=== PATIENT | male | born 1940 | race Caucasian/White ===

== ENCOUNTER → 2021-11-29 13:25 | Outpatient (BNVA) | payer MEDICARE, OTHER, SELFPAY | PROVIDERS: PCP Student in an Organized Health Care Education/Training Program; Visit Provider Internal Medicine Cardiovascular Disease | DX: I48.91 Unspecified atrial fibrillation (principal); R60.9 Edema, unspecified; Z87.891 Personal history of nicotine dependence; I50.9 Heart failure, unspecified; Z95.818 Presence of other cardiac implants and grafts; E66.9 Obesity, unspecified; Z68.41 Body mass index [BMI] 40.0-44.9, adult | CPT/HCPCS: 93005; 99204 ==

== ENCOUNTER 2021-12-05 09:29 | Outpatient (CLI) | payer MEDICARE, OTHER, SELFPAY ==
[2021-12-05 10:02] LABS: Basophils % 0.5 %; Eosinophils # 0.2 10^3/uL (0.0-0.8); Eosinophils % 3.3 %; Hematocrit 42.9 % (42.0-52.0); Hemoglobin 14.5 g/dL (11.7-16.6); Lymphocytes # 1.1 10^3/uL (0.8-4.8); Lymphocytes % 20.9 %; Mean Corpuscular HGB Conc 33.8 g/dL (30.0-36.0); Mean Corpuscular Hemoglobin 34.1 pg (28.0-34.0); Mean Corpuscular Volume 100.9 fl (80-94); Mean Platelet Volume 10.1 fL (7.4-10.4); Monocytes # 0.5 10^3/uL (0.2-0.9); Monocytes % 9.3 %; Neutrophils # 3.59 10^3/uL (1.8-7.7); Neutrophils % 65.8 %; Nucleated Red Blood Cells % 0 %; Platelet Count 125 10^3/cmm (130-400); Red Blood Count 4.25 10^6/uL (4.1-5.3); Red Cell Distribution Width 12.7 % (12.1-15.1); White Blood Count 5.5 10^3/uL (4.0-10.0)
[2021-12-05 10:32] LABS: Alanine Aminotransferase 17 U/L (0-41); Alkaline Phosphatase 71 U/L (40-130); Anion Gap 10.9 (5-19); Aspartate Amino Transferase 22 U/L (0-40); Blood Urea Nitrogen 19 mg/dL (8-23); Calcium 8.9 mg/dL (8.5-10.5); Carbon Dioxide 31 mmol/L (22-29); Chloride 105 mmol/L (98-107); Chol HDL Ratio 2.66 mg/dL (1.0-5.00); Cholesterol 117 mg/dL (0-200); Globulin 2.5 g/dL (1.3-4.6); Glucose 93 mg/dL (65-115); HDL Cholesterol 44 mg/dL (60-100); LDL Cholesterol Calculated 61 mg/dL (50-129); LDL HDL Ratio 1.39 RATIO (0.00-3.22); NT Pro B Type Natriuretic Pept 623 pg/mL (0-450); Osmolality Calculated 296 mOsm/kg (285-295); Potassium 4.9 mmol/L (3.5-5.1); Sodium 142 mmol/L (136-145); Thyroid Stimulating Hormone 3.42 uIU/mL (0.27-4.20); Total Bilirubin 0.8 mg/dL (0.15-1.2); Total Protein 6.5 g/dL (6.6-8.7); Triglycerides 61 mg/dL (0-150)
== END 2021-12-05 09:30 | disposition home or self-care (01) ==
LOC: LAB 09:32
PROVIDERS: PCP Student in an Organized Health Care Education/Training Program; Visit Provider Internal Medicine Cardiovascular Disease
DX: I50.9 Heart failure, unspecified (principal); N18.9 Chronic kidney disease, unspecified; Z79.01 Long term (current) use of anticoagulants; R53.1 Weakness; E78.5 Hyperlipidemia, unspecified; R06.02 Shortness of breath
CPT/HCPCS: 36415; 80053; 80061; 83880; 84443; 85025

== ENCOUNTER → 2022-03-06 14:34 | Outpatient (BNVA) | payer MEDICARE, OTHER, SELFPAY | PROVIDERS: Visit Provider Nurse Practitioner Family | DX: I48.20 Chronic atrial fibrillation, unspecified (principal); Z95.818 Presence of other cardiac implants and grafts; I50.42 Chronic combined systolic (congestive) and diastolic (congestive) heart failure; I49.3 Ventricular premature depolarization | CPT/HCPCS: 80053; 83880; 85025; 93005; 99214 ==

== ENCOUNTER 2022-03-29 14:33 | Outpatient (CLI) | payer MEDICARE, OTHER, SELFPAY ==
--- NOTE | 2022-03-29 15:00 | USCV_ITS ---
Luis Antonio Santo Age: 81 Gender: M : 1940 Exam Date: 03/29/2022 15:12 Ordering Phys: Abbie Long Technologist: Exam Location: [facility] [place] Indication: dizzy BP: 130 / 74 HR: 41 Rhythm: Sinus Technical Quality: Adequate MEASUREMENTS (Male / Female) Normal Values 2D ECHO LV Diastolic Diameter PLAX 4.4 cm 4.2 - 5.9 / 3.9 - 5.3 cm LV Systolic Diameter PLAX 2.4 cm IVS Diastolic Thickness 1.5 cm 0.6 - 1.0 / 0.6 - 0.9 cm IVS Systolic Thickness 1.3 cm LVPW Diastolic Thickness 1.4 cm 0.6 - 1.0 / 0.6 - 0.9 cm LVPW Systolic Thickness 1.5 cm LVOT Diameter 2.0 cm LV Ejection Fraction 2D Teich 76.6 % LV Ejection Fraction MOD 2C 73.2 % LV Ejection Fraction 2C AL 73.6 % LA Diameter 4.4 cm Aorta at Sinotubular Diameter 3.1 cm M-MODE Aortic Annulus Diameter 3.3 cm LA Ao Ratio MM 1.4 MV E Point Septal Separation 1.2 cm DOPPLER AV Peak Velocity 126.0 cm/s LVOT Peak Velocity 64.0 cm/s AV Area Cont Eq vti 1.4 cm squared AV Area Cont Eq pk 1.6 cm squared MV Area PHT 5.0 cm squared Mitral E to A Ratio 2.3 MV E' Velocity 45.5 cm/s Mitral E to MV E' Ratio 4.8 Mitral E to LV E' Lateral Ratio 4.8 Mitral E to LV E' Septal Ratio 4.8 TR Peak Velocity 248.3 cm/s TR Peak Gradient 24.7 mmHg TV Peak E Velocity 108.0 cm/s Right Atrial Pressure 3.0 mmHg Pulmonary Artery Systolic Pressu 27.7 mmHg RV Acceleration Time 0.1 s FINDINGS Left Ventricle Normal left ventricular size and systolic function, EF 70 %. No regional wall motion abnormalities. Right Ventricle Mildly dilated right ventricle with a normal ejection fraction. Horizontal density near the RV apex-moderator band Right Atrium Moderately increased right atrial size. Left Atrium Appears to be of normal Mitral Valve No gross abnormalities noted Aortic Valve No gross abnormalities noted Tricuspid Valve Mild tricuspid valve regurgitation. Estimated pulmonary artery peak systolic pressure of 38 mmHg Pulmonic Valve No gross abnormalities noted Pericardium No pericardial effusion. Aorta Normal aortic annulus size. IVC Inferior vena cava not visualized. CONCLUSIONS Normal left ventricular size and systolic function, EF 70 %. No regional wall motion abnormalities. Mildly dilated right ventricle with a normal ejection fraction. Possible moderator band in the right ventricle. Moderately dilated right atrium Mild tricuspid valve regurgitation. Estimated pulmonary artery peak systolic pressure of 38 mmHg. There is no pericardial effusion. No similar previous studies are available for comparison Dr Abbey Madden MD FACC (Electronically Signed) Final Date: 31 March 2022 18:15 S
== END 2022-03-29 14:34 | disposition home or self-care (01) ==
PROVIDERS: PCP Internal Medicine Cardiovascular Disease; Visit Provider Nurse Practitioner Family
DX: R42 Dizziness and giddiness (principal); I48.91 Unspecified atrial fibrillation; I50.42 Chronic combined systolic (congestive) and diastolic (congestive) heart failure; I07.1 Rheumatic tricuspid insufficiency
CPT/HCPCS: 93306

== ENCOUNTER 2022-04-18 11:13 | Outpatient (CLI) | payer MEDICARE, OTHER, SELFPAY ==
[2022-04-18 12:27] LABS: Anion Gap 10.8 (5-19); Blood Urea Nitrogen 28 mg/dL (8-23); Calcium 8.7 mg/dL (8.5-10.5); Carbon Dioxide 29 mmol/L (22-29); Chloride 101 mmol/L (98-107); Glucose 96 mg/dL (65-115); NT Pro B Type Natriuretic Pept 453 pg/mL (0-450); Osmolality Calculated 287 mOsm/kg (285-295); Potassium 4.8 mmol/L (3.5-5.1); Sodium 136 mmol/L (136-145)
== END 2022-04-18 11:14 | disposition home or self-care (01) ==
PROVIDERS: PCP Internal Medicine Cardiovascular Disease; Visit Provider Nurse Practitioner Family
DX: I48.91 Unspecified atrial fibrillation (principal); I50.42 Chronic combined systolic (congestive) and diastolic (congestive) heart failure
CPT/HCPCS: 36415; 80048; 83880

== ENCOUNTER → 2022-12-12 13:00 | Outpatient (BNVA) | payer MEDICARE, OTHER, SELFPAY | PROVIDERS: PCP Family Medicine; Visit Provider Nurse Practitioner Family | DX: I48.91 Unspecified atrial fibrillation (principal); R94.31 Abnormal electrocardiogram [ECG] [EKG] | CPT/HCPCS: 93005; 99213 ==

== ENCOUNTER → 2023-06-19 12:27 | Outpatient (BNVA) | payer MEDICARE, SELFPAY | PROVIDERS: PCP Family Medicine; Visit Provider Internal Medicine Cardiovascular Disease | DX: R06.02 Shortness of breath (principal); I48.91 Unspecified atrial fibrillation | CPT/HCPCS: 36415; 80048; 83880; 99214 ==

== ENCOUNTER → 2024-08-17 11:18 | Outpatient (BNVA) | payer MEDICARE, SELFPAY | PROVIDERS: PCP Family Medicine; Visit Provider Internal Medicine Cardiovascular Disease | DX: I50.42 Chronic combined systolic (congestive) and diastolic (congestive) heart failure (principal); I48.21 Permanent atrial fibrillation; Z79.01 Long term (current) use of anticoagulants; Z86.718 Personal history of other venous thrombosis and embolism; Z87.891 Personal history of nicotine dependence; R07.9 Chest pain, unspecified; R06.02 Shortness of breath; R55 Syncope and collapse | CPT/HCPCS: 93005; 99214 ==

== ENCOUNTER 2024-08-20 07:29 | Outpatient (CLI) | payer MEDICARE, SELFPAY ==
[2024-08-20 08:41] LABS: Anion Gap 12.5 (5-19); Blood Urea Nitrogen 27 mg/dL (8-23); Calcium 8.8 mg/dL (8.5-10.5); Carbon Dioxide 28 mmol/L (22-29); Chloride 104 mmol/L (98-107); Glucose 91 mg/dL (65-115); NT Pro B Type Natriuretic Pept 1370 pg/mL (0-450); Osmolality Calculated 295 mOsm/kg (285-295); Potassium 4.5 mmol/L (3.5-5.1); Sodium 140 mmol/L (136-145)
== END 2024-08-20 07:30 | disposition home or self-care (01) ==
LOC: LAB 07:30
PROVIDERS: PCP Nurse Practitioner Family; Visit Provider Internal Medicine Cardiovascular Disease
DX: R06.02 Shortness of breath (principal)
CPT/HCPCS: 36415; 80048; 83880

== ENCOUNTER 2024-10-26 07:49 | Outpatient (CLI) | payer MEDICARE, SELFPAY ==
--- NOTE | 2024-10-26 | ECG_ITS ---
[employer] Test Date: 2024-10-26 Pat Name: Luis Antonio Santo Department: Room: Gender: Male Contact Center Analyst: : 1940 Requested By: Abbey Madden Order Number: [id number] Reading MD: CHEMA PRYOR Interpretive Statements Lung unchanged pre/post procedure; ; Intraprocedure shortess of breath; ; Symptoms resoled by discharge NOTE: Please note that this is the electrocardiogram portion of the Lexiscan/Sestamibi stress test. The perfusion scan will be documented separately. DATA: Baseline heart rate was 75 beats per minute. Baseline blood pressure was 140/90 millimeters of mercury. Target heart rate was 137 maximum heart rate achieved was 86. which was 62% of the predicted target heart rate. Maximum blood pressure was 140/91 millimeters of mercury. The reason for ending the test was [completion of the protocol]. The patient did not experience any symptoms. ELECTROCARDIOGRAM: BASELINE: Atrial fibrillation. Normal axis. Otherwise, no ST-T changes suggestive of ischemia noted. Frequent PVCs were noted EXERCISE: After Lexiscan injection, no ST-T changes suggestive of ischemic noted. Frequent PVCs noted which increased after Lexiscan injection CONCLUSION: Please note due to baseline abnormality of the EKG specificity and sensitivity of the EKG portion of LexiScan MIBI stress test will be low 1. [EKG not suggestive of ischemia] 2. [Lexiscan injection unremarkable]. 3. Perfusion scan will be documented separately. Electronically Signed On 11-22-2024 21:09:59 CDT by CHEMA PRYOR [email or web address]
[2024-10-26 08:01] VITALS: BMI 35.1
--- NOTE | 2024-10-26 08:02 | NMCV_ITS ---
NM rai perf SPECT r/s* [id number] Luis Antonio Santo Age: 84 Gender: M : 1940 Exam Date: 10/26/2024 08:49 Ordering Phys: Abbey Madden MD ([email or web address]) Technologist: FRANCISCO J Villagran Exam Location: [facility] Indications: cp STRESS TEST [facility] IMAGE PROTOCOL Rest/Stress 1 Lexiscan Day Radiopharmaceutical Dose (mCi) Administration Site Administered by Rest: Tc-99m 10.6 IV Cara Bobo, [employer] Sestamibi Stress:Tc-99m 32.6 IV Cara Bobo, [employer] Sestamibi Rest: 26-Oct-2024 60 Discovery 630 Stress: 26-Oct-2024 30 Discovery 630 0.4mg Lexiscan. Supine position only as patient was unable to lay prone. 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 FUNCTIONAL RESULTS (calculated via Gated SPECT) Stress Image LV EF (%): 50 Stress EDV (mL):115 TID: 0.94 Stress ESV (mL):57 FUNCTIONAL FINDINGS: Inferior and inferolateral wall akinesis. 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 Ashwin Harris MD (Electronically Signed) Final Date: 29 October 2024 09:52 S
[2024-10-26 09:30] VITALS: BP 123/88; PULSE 70
== END 2024-10-26 07:50 | disposition home or self-care (01) ==
LOC: CDL 07:51
PROVIDERS: PCP Nurse Practitioner Family; Visit Provider Internal Medicine Cardiovascular Disease
DX: I50.42 Chronic combined systolic (congestive) and diastolic (congestive) heart failure (principal); R93.1 Abnormal findings on diagnostic imaging of heart and coronary circulation; I48.91 Unspecified atrial fibrillation
CPT/HCPCS: 36415; 78452; 93017; 96374; A9500; J2785